=== PATIENT | male | born 1985 | race Caucasian/White ===

== ENCOUNTER 2023-11-08 21:45 | Emergency (ER) | payer BC ==
[~2023-11-08] VITALS: Ht 177.8 cm; Wt 89.0 kg
[2023-11-08] MEDS ORDERED: RALTEGRAVIR 400 MG TABLET PO NR (22:07)
[2023-11-08] MEDS ORDERED: TENOFOVIR 300MG TABLET PO NR (22:07)
[2023-11-08] MEDS ORDERED: EMTRICITABINE 200MG CAPSULE PO NR (22:07)
== END 2023-11-08 23:04 | disposition home or self-care (01) ==
LOC: ER 21:45
DX: S61.439A Puncture wound without foreign body of unspecified hand, initial encounter (principal); W46.0XXA Contact with hypodermic needle, initial encounter; Y93.89 Activity, other specified; Y92.89 Other specified places as the place of occurrence of the external cause; Y99.8 Other external cause status
CPT/HCPCS: 36415; 99284

== ENCOUNTER 2025-05-04 13:15 | Emergency (ER) | payer BC ==
[~2025-05-04] VITALS: Ht 170.2 cm; Wt 81.6 kg
[2025-05-04 13:22] VITALS: BP 130/89; PULSE 82; RESP 16; TEMP 37.1; O2SAT 100
== END 2025-05-04 14:10 | disposition home or self-care (01) ==
LOC: ER 13:15
DX: R76.11 Nonspecific reaction to tuberculin skin test without active tuberculosis (principal)
CPT/HCPCS: 71045; 99283